=== PATIENT | female | born 1980 | race Caucasian/White ===

== ENCOUNTER 2022-12-31 12:04 | Emergency (ER) | payer SELFPAY ==
[~2022-12-31] VITALS: Ht 165.1 cm; Wt 197.3 kg
[2022-12-31 12:07] VITALS: O2SAT 97
[2022-12-31] MEDS ORDERED: HYDROCODONE/APAP 5MG-325MG TAB PO ONE (12:15)
[2022-12-31] MEDS ORDERED: KETOROLAC TROMETHAMINE 60 MG/2 ML VIAL IM ONE (12:15)
[2022-12-31] MEDS ORDERED: MEDROL4 M2 PO (12:22)
[2022-12-31] MEDS ORDERED: METHOCARBAMOL500 MG PO (12:22)
== END 2022-12-31 12:35 | disposition home or self-care (01) ==
LOC: ER 12:13
DX: M54.41 Lumbago with sciatica, right side (principal)
CPT/HCPCS: 99282; J1885